=== PATIENT | male | born 1975 | race Caucasian/White ===

== ENCOUNTER 2022-11-24 02:51 | Inpatient (IN) | payer BC, SELFPAY ==
--- NOTE | 2022-11-24 | ECHO_ITS ---
Patient Info Name: Adalberto Howe Age: 47 years : 1975 Gender: Unknown Accession #: $[id number]$ Ht: 68 in Wt: 145 lbs BSA: 1.78 m2 HR: 65 bpm BP: 139 / 94 mmHg Heart Rhythm: Sinus Rhythm Exam Date: 11/24/2022 11:33 AM Exam Location: [facility] Helper: EMELIW Exam Type: CA echo doppler color flow Study Info Indications - st elevation mi R07.89 - Other chest pain Complete two-dimensional, color flow and Doppler transthoracic echocardiogram is performed. Summary 1. Complete two-dimensional, color flow and Doppler transthoracic echocardiogram is performed. 2. Left ventricular chamber dimension is normal. 3. Left ventricular systolic function is mildly reduced, estimated at 40-45%. 4. There is hypokinesis of the mid inferoseptum and mid anterolateral ruggiero. The apex is akinetic. Regional wall motion abnormality consistent with LAD infarction. 5. The left ventricular diastolic function is grade I diastolic dysfunction. 6. Right ventricular systolic function is normal. 7. There is mild mitral valve regurgitation. 8. There is mild tricuspid valve regurgitation. Left Ventricle There is hypokinesis of the mid inferoseptum and mid anterolateral ruggiero. The apex is akinetic. Regional wall motion abnormality consistent with LAD infarction. Left ventricular chamber dimension is normal. Left ventricular systolic function is mildly reduced, estimated at 40-45%. There is no increased left ventricular wall thickness. The left ventricular diastolic function is grade I diastolic dysfunction. Global longitudinal strain is abnormal at -11 %. Right Ventricle Right ventricular chamber dimension is normal. Right ventricular systolic function is normal. Left Atria Left atrial chamber dimension is normal. Right Atria Right atrial chamber dimension is normal. Atrial Septum Intact interatrial septum visualized by color flow imaging. Aortic Valve The aortic valve is trileaflet. There is no aortic valve stenosis. There is no aortic valve regurgitation. Pulmonic Valve The pulmonic valve is normal. Mitral Valve The mitral valve has thickened leaflets. There is mild mitral valve regurgitation. Tricuspid Valve There is mild tricuspid valve regurgitation. Pericardium/Pleural There is no pericardial effusion. Inferior Vena Cava Normal inferior vena cava with >50% collapse upon inspiration consistent with elevated right atrial pressure, 8 mmHg. Aorta The aortic root size at the sinus of Valsalva is normal. Left Ventricular Outflow Tract Name Value Normal LVOT 2D LVOT Diameter 2.0 cm LVOT Doppler LVOT Peak Gradient 3 mmHg LVOT Mean Gradient 2 mmHg LVOT VTI 16 cm LVOT VTI/AV VTI Ratio 0.7 LVOT Stroke Volume 53 ml LVOT CO 13.3 l/min LVOT CI 7.5 l/min/m2 Pulmonic Valve Name Value Normal RVOT Doppler
--- NOTE | ~2022-11-24 | US_ITS ---
US abdomen limited INDICATION: Elevated liver function tests PROCEDURE: Realtime right upper abdominal ultrasound. COMPARISON: No prior studies for comparison. FINDINGS: The pancreas is normal without focal mass or pancreatic ductal dilation. Liver echotexture is normal without focal mass or intrahepatic biliary dilatation. There is normal directional flow i n the portal vein. The gallbladder is normal without stones, gallbladder wall thickening or pericholecystic fluid. Comm on bile duct measures 4.5 mm. No sonographic De Anda's sign. IMPRESSION: 1: Normal limited abdominal ultrasound. Reviewed, dictated and finalized at location L.
--- NOTE | 2022-11-24 03:04 | ECG_ITS ---
Measurements Intervals [place] Rate: 64 P: 50 [place]: 171 QRS: -24 QRSD: 98 T: 42 QT: 389 QTc: 404 Interpretive Statements SINUS RHYTHM WITH OCCASIONAL VENTRICULAR PREMATURE COMPLEXES ANTEROSEPTAL MYOCARDIAL INFARCTION , POSSIBLY ACUTE [40+ ms Q WAVE IN V1-V4] ACUTE ME NO PREVIOUS ECG AVAILABLE FOR COMPARISON Electronically Signed On 11-25-2022 13:39:41 CDT by Keysha Harrington M.D.
[2022-11-24 05:00] VITALS: BMI 23.3
--- NOTE | 2022-11-24 05:03 | ECG_ITS ---
Measurements Intervals [place] Rate: 68 P: 65 [place]: 173 QRS: 5 QRSD: 102 T: 51 QT: 353 QTc: 377 Interpretive Statements SINUS RHYTHM LEFT ATRIAL ENLARGEMENT [-0.15mV P WAVE IN V1/V2] ANTEROLATERAL MYOCARDIAL INFARCTION RECENT BY SERIAL ECG REVIEW COMPARED TO ECG 11/24/2022 03:04:11 ACUTE CURRENT OF INJURY IS IMPROVED PATIENT HAS EVOLVED COMPLETED ANTERIOR Q-WAVE RI Electronically Signed On 11-29-2022 15:24:22 CDT by Justice Vega M.D.
[2022-11-24 20:00] VITALS: BP 131/94; PULSE 53; RESP 12; TEMP 37.1; O2SAT 100
[2022-11-24 22:00] VITALS: BP 122/85; PULSE 65; PULSE 67; RESP 14; O2SAT 98
[2022-11-24] MEDS: TICAGRELOR 90 MG TABLET PO (22:00)
--- NOTE | 2022-11-24 22:39 | HP_ITS ---
DATE OF SERVICE: HISTORY OF PRESENT ILLNESS: This is a white male, unknown to me prior to this consultation, who is admitted to the cardiac process laboratory specialist emergently this evening in the setting of acute anterior wall PA for emergency angiography and revascularization. The patient reports no previous history of significant medical problems other than depression. He states that he began to experience significant retrosternal chest pain at about 10 p.m. last evening. At about 3:15 a.m., I was notified in the emergency room that he presented there with these symptoms and obvious acute anterior wall . Emergency angiography has been recommended. The patient is being seen in the process laboratory specialist as he is being prepared for emergency angiography. He denies any history of hypertension, dyslipidemia, smoking, or diabetes. PAST MEDICAL HISTORY: Other than dementia is unremarkable. PAST SURGICAL HISTORY: Unremarkable. MEDICATIONS: An unknown antidepressant. ALLERGIES: NONE KNOWN. SOCIAL HISTORY: The patient is a nonsmoker. FAMILY HISTORY: He does not report a family history of premature coronary artery disease. 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 REVIEW OF SYSTEMS: Not obtained during this emergency. PHYSICAL EXAMINATION: GENERAL: He is a healthy, well-developed, well-nourished appearing gentleman, his stated age, in mild distress with chest pain. VITAL SIGNS: Blood pressure is 190/100, heart rate is 84 and regular, and respiratory rate 20 and nonlabored. HEAD AND NECK: Normocephalic and atraumatic. Pupils are equal and reactive. Sclerae are anicteric. NECK: Supple without JVD, thyromegaly, bruits, or lymphadenopathy. CHEST: Auscultation is clear in both lung castañeda. CARDIAC: PMI is not displaced. S1 and S2 are normal. There is no audible murmur. Fourth heart sound is audible. ABDOMEN: Benign, soft, and nontender. Bowel sounds are normal. EXTREMITIES: Free of any edema. Pulses are adequate distally. IMPRESSION: This is a patient without prior history of coronary artery disease, presenting about 4 hours into acute anterior wall myocardial infarction. He is being brought for emergency angiography and revascularization as indicated by those findings. D I MT: [facility]
--- NOTE | 2022-11-24 22:54 | OP_ITS ---
DATE OF PROCEDURE: CLINICAL SUMMARY: This is a white male without any prior history of coronary artery disease, who presented to the emergency department with chest pain that began about 3 hours prior to presentation. ECG upon arrival showed obvious acute anterior injury current, and STEMI team was activated. He is being brought to the medical laboratory technicians and prepped for emergency angiography. The patient is reporting moderate chest pain. Reports no other symptoms at this time. DESCRIPTION OF PROCEDURE: The patient was taken to the medical laboratory technicians in the emergent setting. The right femoral triangle was prepared and draped in the usual fashion. Anesthesia was provided with 1% lidocaine infiltrated locally. Using the modified Seldinger technique, a 6-Chadian vascular sheath was placed into the femoral artery. After this, I used a 6-Chadian CLS 3.5 guiding catheter to engage and inject the left coronary artery in multiple projections. Following this, the left coronary angiograms were reviewed, and emergency PCI of the LAD was recommended and carried out as detailed below. Prior to LAD PCI, the patient was systemically anticoagulated with a bolus and infusion of Angiomax. He had received aspirin and 180 mg of Brilinta in the emergency department. Following completion of PCI, the guiding catheter was withdrawn. A 6-Chadian JR4 catheter was used to engage and inject the right coronary artery. Following this, a 5-Chadian angled pigtail catheter was used to measure left-sided hemodynamics and to inject a left ventriculogram in the JONES projection. The case was then terminated. The sheath was sutured into position. The patient was taken to the ICU for post UT PCI recovery. There were no apparent procedural complications, and he left the medical laboratory technicians with no evidence of a groin hematoma. RESULTS: HEMODYNAMICS: Central aortic pressure is 195/105, left ventricle 195/10, end-diastolic pressure 24. There is no gradient upon pullback across the aortic valve. LEFT VENTRICULOGRAM: The left ventricle is normal in size. The mid to apical anterior wall and apical inferior wall are akinetic. The remainder of the LV contracts well. The global ejection fraction is approximately 40% by visual estimation. The left main coronary artery is nicely patent. LAD: The LAD is a large caliber vessel after the small diagonal branch the LAD is totally occluded. There is no antegrade flow. The appearance is typical of an abrupt thrombotic occlusion. CIRCUMFLEX: The circumflex is a medium caliber artery giving rise to a very small proximal marginal and then a more substantial second marginal. The circumflex system has mild luminal irregularities, but no significant limiting disease is identified. RIGHT CORONARY ARTERY: The right coronary artery is large in caliber and dominant to the posterior circulation. The RCA has mild diffuse luminal irregularities, but no significant flow-limiting atherosclerosis is seen. INTERVENTION: The LAD lesion was crossed and wired fairly easily with a 0.014 BMW guidewire. This was advanced down to the apex. The lesion was pre-dilated using a 3 x 20 mm Jonathan balloon inflated at 7 atmospheres for 30 seconds. Following this, the target lesion was stented using a 4 x 22 mm Orsiro drug-eluting stent with a very good anatomical result. This was deployed at 10 atmospheres for 60 seconds. At the end of the case, the LAD was widely patent with no residual stenosis, disruption, dissection, or distal embolization. ROMAN-3 flow was restored down to the apex. FINAL IMPRESSION: 1. Coronary artery disease presenting with acute anterior wall myocardial infarction with 100% occlusion of the proximal aspect of large LAD. 2. Successful emergency revascularization with good angiographic results using the 4 x 22 mm drug-eluting stent described above. 3. Mild non-f
[2022-11-25] VITALS (12 sets, daily range): BP systolic 130–153; BP diastolic 82–100; PULSE 52–72; RESP 14–26; TEMP 36.6–37.2; O2SAT 96–100
[2022-11-25 04:49] LABS: Basophils Absolute Auto 0.1 K/mm3 (0.0-0.1); Basophils Percent Auto 0.4 % (0.2-1.2); Eosinophils Absolute Auto 0.2 K/mm3 (0-0.3); Eosinophils Percent Auto 1.7 % (0-4.4); Hematocrit 41.9 % (42.0-52.0); Hemoglobin 13.9 g/dL (14.0-18.0); Immature Granulocyte Absolute 0.06 K/mm3 (0.00-0.031); Immature Granulocyte Percent A 0.4 % (0-0.5); Lymphocytes Absolute Auto 4.17 K/mm3 (0.9-3.2); Lymphocytes Percent Auto 29.8 % (18.3-44.2); Mean Corpuscular HGB Conc 33.2 g/dl (32-36); Mean Corpuscular Hemoglobin 32.2 pg (26-34); Monocytes Absolute Auto 1.2 K/mm3 (0.1-0.6); Monocytes Percent Auto 8.6 % (2.6-8.5); Neutrophils Absolute Auto 8.3 K/mm3 (1.3-6.7); Neutrophils Percent Auto 59.1 % (45.5-73.1); Platelet Count Result 227 k/mm3 (150-375); Red Blood Count 4.32 M/mm3 (4.6-6.20); Red Cell Distribution Width 12.7 % (11.5-14.5)
[2022-11-25 05:01] LABS: Alanine Aminotransferase 86 U/L (6-50); Albumin Level 3.8 g/dL (3.5-5.1); Alkaline Phosphatase 132 U/L (38-126); Anion Gap -2 mmol/L (8-16); Aspartate Amino Transferase 445 U/L (17-59); Bilirubin,Total 0.6 mg/dL (0.2-1.3); Blood Urea Nitrogen 10 mg/dL (9-20); Calcium 8.1 mg/dL (8.4-10.2); Carbon Dioxide 33 mmol/L (22-30); Chloride 106 mmol/L (98-107); Estimated CRCL calculation 109 ml/min; Estimated Glomerular Filt Rate > 60; Glucose 98 mg/dL (65-110); Magnesium 2.4 mg/dL (1.6-2.3); Phosphorus 2.8 mg/dL (2.5-4.5); Potassium 4.1 mmol/L (3.4-5.0); Sodium 137 mmol/L (137-145)
[2022-11-25] MEDS: TICAGRELOR 90 MG TABLET PO ×2 (08:14→20:24)
[2022-11-25] MEDS: LOSARTAN POTASSIUM 50 MG TABLET PO (08:14)
[2022-11-25] MEDS: METOPROLOL SUCCINATE EXT REL 100 MG TABCR PO (08:14)
[2022-11-25] MEDS: ROSUVASTATIN 10 MG TABLET 20 MG PO (08:15)
[2022-11-25] MEDS: ASPIRIN 81 MG CHEWABLE TABLET PO (08:15)
[2022-11-25 08:43] LABS: Hepatitis B Surface Antigen Negative (Negative)
[2022-11-25 08:48] LABS: HAV RESULT Negative (Negative); Hepatitis B Core IgM Result Negative (Negative)
[2022-11-25 09:00] LABS: Hepatitis C Virus Antibody Negative (Negative)
--- NOTE | 2022-11-25 09:00 | WPDINTPN ---
Progress Note: A&P Assessment and Plan (1) ST elevation (STEMI) myocardial infarction involving left anterior descending coronary artery: Code(s): I21.02 - ST elevation (STEMI) myocardial infarction involving left anterior descending coronary artery Status: Acute Assessment and Plan: Patient presented with chest pain on 11/24/2022, found to have anterior wall MN, was taken emergently to the labor commissioner where he was found to have 100% occlusion of the proximal aspect of large LAD, status post ADRIEN x1 with good angiographic results. EF of 40% with akinesis of mid to apical anterior wall -continue aspirin, metoprolol, rosuvastatin, Brilinta and losartan -cardiology following closely (2) Hypertension: Code(s): I10 - Essential (primary) hypertension Status: Acute Assessment and Plan: Continue metoprolol and losartan -blood pressures have been stable (3) Hyperlipidemia: Code(s): E78.5 - Hyperlipidemia, unspecified Status: Acute Assessment and Plan: Continue rosuvastatin (4) Tobacco use: Code(s): Z72.0 - Tobacco use Status: Acute Assessment and Plan: Have counseled patient on cessation of tobacco use -he smokes 1-2 cigarillo on a daily basis (5) Elevated liver enzymes: Code(s): R74.8 - Abnormal levels of other serum enzymes Status: Acute Assessment and Plan: Elevated LFTs could be related to MN -will obtain right upper quadrant ultrasound -check hepatitis panel Plan DVT prophylaxis: Patient ambulatory Stress ulcer prophylaxis: Not indicated Nutrition: Heart healthy diet Code Status: Full Code Critical Care Time Spent: 31 minute Due to a high probability of clinically significant, life threatening deterioration, the patient required my highest level of preparedness to intervene emergently and I personally spent this critical care time directly and personally managing the patient. This critical care time included obtaining a history; examining the patient; pulse oximetry; ordering and review of studies; arranging urgent treatment with development of a management plan; evaluation of patient's response to treatment; frequent reassessment; and discussions with other providers. It was exclusive of separately billable procedures and treating other patients and teaching time. Please see Assessment and Plan section and the rest of the note for further information on patient assessment and treatment This dictation may have been done utilizing a voice recognition system. Attempts have been made to correct errors. However, there may be uncorrected grammatical, spelling, and recognitions errors present. Subjective Date/time seen: 11/25/22 09:00 Interval history: Reason for consult: Anterior wall ST-elevation MN status post PTCA/PCI with ADRIEN x1 proximal aspect of large LAD which was totally occluded. Global ejection fraction was approximately 40% 11/25/2022: Patient seen and examined the ICU, awake, alert, denies any chest pain, shortness a breath, nausea, vomiting. Appetite has been good. Patient is afebrile, hemodynamically stable with adequate urine output. No issues overnight. Elevated liver enzymes this morning with a normal bilirubin Review of Systems Review of Systems: All systems reviewed & are unremarkable except as noted in HPI and below Exam Narrative: General: Pleasant gentleman in no acute distress HEENT:? Pupils equal and reactive, sclera is clear Neck:? Supple Respiratory:? Clear to auscultation bilaterally, adequate air entry, no wheezing Cardiac:? S1-S2 is normal, sinus bradycardia Abdomen:? Soft, nontender, nondistended, normoactive bowel sounds Extremities:? Right groin site without evidence of ecchymosis or hematoma, bilateral palpable pedal pulses, no lower extremity edema Neuro:? Patient is awake, alert, oriented, nonfocal Skin:? Dry and intact, no skin lesions noted Psych:? Normal mentation and affect Objec
--- NOTE | 2022-11-25 12:27 | PM.PNCARD ---
Progress Note: A&P Assessment and Plan (1) ST elevation (STEMI) myocardial infarction involving left anterior descending coronary artery: Code(s): I21.02 - ST elevation (STEMI) myocardial infarction involving left anterior descending coronary artery Status: Acute Assessment and Plan: Anterior STEMI with 100% LAD occlusion treated with placement of 4 x 22 mm Orsiro drug-eluting stent. Continue DAPT with ASA and Brilinta Continue statin Continue aggressive risk factor modification for CAD Echo shows LV systolic dysfunction with EF 40-45%. No evidence of heart failure on exam. NSVT on telemetry. Asymptomatic, self limiting. Continue metoprolol. Continue telemetry. OK to downgrade to IMU today Referral for cardiac rehab Anticipate discharge tomorrow as long as his clinical status remains stable. (2) Hypertension: Code(s): I10 - Essential (primary) hypertension Status: Acute Assessment and Plan: BP remains above goal. Continue losartan, metoprolol Add amlodipine 2.5mg daily (3) Hyperlipidemia: Code(s): E78.5 - Hyperlipidemia, unspecified Status: Acute Assessment and Plan: Continue rosuvastatin (4) Tobacco use: Code(s): Z72.0 - Tobacco use Status: Acute Assessment and Plan: Counseling performed (5) Elevated liver enzymes: Code(s): R74.8 - Abnormal levels of other serum enzymes Status: Acute Assessment and Plan: Liver u/s today. Subjective Date/time seen: 11/25/22 12:27 Cardiology follow up for STEMI Interval history: Feeling well this morning. Denies any chest pain, shortness of breath, palpitations. Had some NSVT overnight, longest run 23 beats. Hemodynamically stable. Review of Systems Review of Systems: All systems reviewed & are unremarkable except as noted in HPI and below Exam Const: General: comfortable, no acute distress, alert and awake Orientation/consciousness: patient oriented x3 HENMT: Head: normal to inspection Eyes: General: appearance normal, both eyes and all related structures Pupils: Equal, round and reactive pupils present Neck: Neck: normal visual inspection, supple and no JVD Carotids: normal carotid upstroke Resp: Effort & Inspection: normal respiratory effort Auscultation: clear to auscultation bilaterally Cardio: Rate: regular rate Rhythm: regular rhythm Heart sounds: S1 normal heart sound present, S2 normal heart sound present and no murmurs GI: Auscultation: normal bowel sounds Skin: General skin exam: normal color Other: R groin arterial access site free from bleeding, hematoma, swelling, pain Neuro: General: patient oriented x3 Cranial nerves: Yes Equal, round and reactive pupils present Extrem: General: normal to inspection Other: no edema Psych: Appearance: grossly normal Mental Status: mental status grossly normal Objective Data Vital Signs Vital Signs: Vital Signs - 24 hr 11/24/22 20:00 11/24/22 20:00 11/24/22 20:00 Temperature 37.1 C Pulse Rate 53 L 53 L Respiratory Rate 12 Blood Pressure 131/94 H Pulse Oximetry 100 Oxygen Delivery Room Air 11/24/22 22:00 11/24/22 22:00 11/25/22 00:00 Temperature Pulse Rate 67 65 53 L Respiratory Rate 14 Blood Pressure 122/85 Pulse Oximetry 98 Oxygen Delivery 11/25/22 00:00 11/25/22 00:00 11/25/22 02:00 Temperature 36.6 C Pulse Rate 53 L 52 L Respiratory Rate 16 Blood Pressure 138/90 Pulse Oximetry 100 Oxygen Delivery Room Air 11/25/22 02:00 11/25/22 04:00 11/25/22 04:00 Temperature Pulse Rate 55 L 53 L Respiratory Rate 26 H Blood Pressure 130/92 H Pulse Oximetry 97 Oxygen Delivery Room Air 11/25/22 04:00 11/25/22 06:00 11/25/22 06:00 Temperature Pulse Rate 53 L 65 65 Respiratory Rate 17 15 Blood Pressure 137/90 153/100 H Pulse Oximetry 100 96 Oxygen Delivery 11/25/22 08:00 11/25/22 08:00 11/25
[2022-11-25 13:10] LABS: Troponin I > 80.000 ng/mL (0.000-0.034)
[2022-11-25 13:11] LABS: Lactic Acid 1.6 mmol/L (0.7-2.0)
[2022-11-25 13:12] LABS: Anion Gap 8 mmol/L (8-16); Aspartate Amino Transferase 59 U/L (17-59); Bilirubin,Total 0.5 mg/dL (0.2-1.3); Blood Urea Nitrogen 12 mg/dL (9-20); Carbon Dioxide 29 mmol/L (22-30); Chloride 101 mmol/L (98-107); Estimated CRCL calculation 96 ml/min; Estimated Glomerular Filt Rate > 60; Glucose 137 mg/dL (65-110); Potassium 3.5 mmol/L (3.4-5.0); Sodium 138 mmol/L (137-145)
[2022-11-25 13:13] LABS: Alanine Aminotransferase 40 U/L (6-50)
[2022-11-25 13:14] LABS: Albumin Level 4.8 g/dL (3.5-5.1); Alkaline Phosphatase 154 U/L (38-126); Total Protein 8.3 g/dL (6.3-8.2)
--- NOTE | 2022-11-25 13:17 | PCCARD ---
Paper documentation exists on this patient due to [employer] [facility] downtime on 11/24/22 from 0030 to [][id number].
[2022-11-26] VITALS: PULSE 55
[2022-11-26 02:00] VITALS: PULSE 49
[2022-11-26 04:00] VITALS: BP 150/97; PULSE 50; PULSE 63; RESP 17; TEMP 36.6; O2SAT 98
[2022-11-26 06:00] VITALS: PULSE 53
[2022-11-26 08:00] VITALS: BP 142/82; PULSE 64; RESP 19; TEMP 36.6; O2SAT 100
[2022-11-26] MEDS: LOSARTAN POTASSIUM 50 MG TABLET PO (08:53)
[2022-11-26] MEDS: METOPROLOL SUCCINATE EXT REL 100 MG TABCR PO (08:53)
[2022-11-26] MEDS: ROSUVASTATIN 10 MG TABLET 20 MG PO (08:53)
[2022-11-26] MEDS: amLODIPine BESYLATE 2.5 MG TABLET PO (08:54)
[2022-11-26] MEDS: TICAGRELOR 90 MG TABLET PO (08:54)
[2022-11-26 08:57] LABS: Alanine Aminotransferase 62 U/L (6-50); Albumin Level 3.8 g/dL (3.5-5.1); Alkaline Phosphatase 125 U/L (38-126); Anion Gap 5 mmol/L (8-16); Aspartate Amino Transferase 205 U/L (17-59); Bilirubin,Total 0.4 mg/dL (0.2-1.3); Blood Urea Nitrogen 12 mg/dL (9-20); Calcium 8.3 mg/dL (8.4-10.2); Carbon Dioxide 27 mmol/L (22-30); Chloride 107 mmol/L (98-107); Estimated CRCL calculation 95 ml/min; Estimated Glomerular Filt Rate > 60; Glucose 149 mg/dL (65-110); Potassium 3.7 mmol/L (3.4-5.0); Sodium 139 mmol/L (137-145)
--- NOTE | 2022-11-26 09:24 | PM.DS ---
DS: Admitting Diagnosis Discharge Date 11/26/2022 Admitting Diagnosis Chest pain DS: Discharge Diagnosis Discharge Diagnosis (1) ST elevation (STEMI) myocardial infarction involving left anterior descending coronary artery: Code(s): I21.02 - ST elevation (STEMI) myocardial infarction involving left anterior descending coronary artery Status: Acute Assessment and Plan: Anterior STEMI with 100% LAD occlusion treated with placement of 4 x 22 mm Orsiro drug-eluting stent. Continue DAPT with ASA and Brilinta Continue statin Continue aggressive risk factor modification for CAD Echo shows LV systolic dysfunction with EF 40-45%. No evidence of heart failure on exam. NSVT on telemetry. Asymptomatic, self limiting. Continue metoprolol. No VT in the last 24 hours on telemetry. Referral for cardiac rehab OK for discharge home today (2) Hypertension: Code(s): I10 - Essential (primary) hypertension Status: Acute Assessment and Plan: BP remains above goal. Continue losartan, metoprolol, amlodipine. Further adjustments to be made as outpatient (3) Hyperlipidemia: Code(s): E78.5 - Hyperlipidemia, unspecified Status: Acute Assessment and Plan: Continue rosuvastatin (4) Tobacco use: Code(s): Z72.0 - Tobacco use Status: Acute Assessment and Plan: Counseling performed (5) Elevated liver enzymes: Code(s): R74.8 - Abnormal levels of other serum enzymes Status: Acute Assessment and Plan: Abdominal u/s normal. LFTs improved today. DS: Summary Hospital Course Hospital Course: Presented to the Emergency Department on 11/24/22 with a chief complaint of chest pain. His EKG was consistent with acute anterior wall SC. He was brought emergently to the cardiac catheterization lab for emergency angiography and revascularization. He was found to have 100% proximal LAD occlusion which was treated with placement of a 4 x 22mm Orsiro drug eluting stent. He recovered well without any significant complications. He did have a few episodes of nonsustained ventricular tachycardia which was asymptomatic and self limiting. He has not had any arrhythmias in the last 24 hours. He was also found to have elevated liver enzymes. Abdominal ultrasound was negative for any liver pathology and liver enzymes are improved this morning. His echocardiogram demonstrated mildly reduced LV systolic function with mid to apical anterior wall akinesis. He is stable this morning and appropriate for discharge home. Time Spent with Patient Time attestation: Total time spent providing and/or coordinating discharge services: Exam Const: General: comfortable, no acute distress, alert and awake Orientation/consciousness: patient oriented x3 HENMT: Head: normal to inspection Eyes: General: appearance normal, both eyes and all related structures Pupils: Equal, round and reactive pupils present Neck: Neck: normal visual inspection, supple and no JVD Carotids: normal carotid upstroke Resp: Effort & Inspection: normal respiratory effort Auscultation: clear to auscultation bilaterally Cardio: Rate: regular rate Rhythm: regular rhythm Heart sounds: S1 normal heart sound present, S2 normal heart sound present and no murmurs GI: Auscultation: normal bowel sounds Skin: General skin exam: normal color Other: R groin arterial access site free from bleeding, hematoma, swelling, pain Neuro: General: patient oriented x3 Cranial nerves: Yes Equal, round and reactive pupils present Extrem: General: normal to inspection Other: no edema Psych: Appearance: grossly normal Mental Status: mental status grossly normal DS: Data Data Completed and Pending Labs on day of discharge: Labs from last 24 hours 11/26/22 11/25/22 11/24/22 08:37 04:38 12:00 Sodium 139 Potassium 3.7 Chloride 107 Carbon Dioxide 27 Anion Gap 5 L BUN 12 10 Cr
[2022-11-26 10:00] VITALS: PULSE 66
[2022-11-26] MEDS: ASPIRIN 81 MG CHEWABLE TABLET PO (10:17)
== END 2022-11-26 11:09 | disposition home or self-care (01) | DRG 247 ==
LOC: ANHED 19:09 → ANHICU 20:00
PROVIDERS: Internal Medicine; Admitting Provider Specialist; Emergency Provider Emergency Medicine; PCP Family Medicine; Visit Provider Nurse Practitioner
PROC: 4A023N7 Measurement of Cardiac Sampling and Pressure, Left Heart, Percutaneous Approach (ICD-10-PCS; CPT 93452; principal; 2022-11-24 03:35)
PROC: 027034Z Dilation of Coronary Artery, One Artery with Drug-eluting Intraluminal Device, Percutaneous Approach (ICD-10-PCS; 2022-11-24 03:35)
DX: I21.02 ST elevation (STEMI) myocardial infarction involving left anterior descending coronary artery (principal); I47.29 Other ventricular tachycardia; E78.5 Hyperlipidemia, unspecified; F17.210 Nicotine dependence, cigarettes, uncomplicated; F32.A Depression, unspecified; I25.10 Atherosclerotic heart disease of native coronary artery without angina pectoris; I10 Essential (primary) hypertension; R74.8 Abnormal levels of other serum enzymes
CPT/HCPCS: 36415; 76705; 80053; 80074; 83605; 83735; 84100; 84484; 85025; 93005; 93306; 93458; 94762; 99285; A9270; C1725; C1769; C1874; C1887; C1894; C9606; J0583; J1644; J2405; J7040

== ENCOUNTER 2023-11-15 13:56 | Emergency (ER) | payer BC, SELFPAY ==
[2023-11-15] VITALS (14 sets, daily range): BP systolic 136–158; BP diastolic 81–97; PULSE 64–87; RESP 12–20; TEMP 36.6–36.9; O2SAT 97–100
--- NOTE | ~2023-11-15 | XR_ITS ---
EXAMINATION: XR chest 2V 11/15/2023 14:40 INDICATION: Chest pain and dizziness. PROCEDURE: 2 view chest COMPARISON: No prior studies for comparison. FINDINGS: The lungs are clear. The cardiomediastinal silhouette is within normal limits. There are no pleural effusions. There is no pneumothorax suspected. IMPRESSION: 1: NO ACUTE CARDIOPULMONARY DISEASE. Reviewed, dictated and finalized at location B.
--- NOTE | 2023-11-15 13:57 | ECG_ITS ---
Test Date: 2023-11-15 13:59:45 Measurements Intervals [place] Rate: 91 P: 74 [place]: 159 QRS: -44 QRSD: 101 T: 79 QT: 353 QTc: 436 Interpretive Statements SINUS RHYTHM WITH SINUS ARRHYTHMIA LEFT ATRIAL ENLARGEMENT [-0.15mV P-WAVE IN V1/V2] LEFT AXIS DEVIATION [QRS AXIS < -30] ANTEROSEPTAL MYOCARDIAL INFARCTION , OF INDETERMINATE AGE [40+ ms Q WAVE IN V1-V4] No previous ECG available for comparison Electronically Signed On 11-26-2023 15:40:21 CDT by Grant Brady M.D.
[2023-11-15 14:17] LABS: Basophils Absolute Auto 0.1 K/mm3 (0.0-0.1); Basophils Percent Auto 0.5 % (0.2-1.2); Eosinophils Absolute Auto 0.1 K/mm3 (0-0.3); Eosinophils Percent Auto 0.5 % (0-4.4); Hematocrit 44.2 % (42.0-52.0); Hemoglobin 15.4 g/dL (14.0-18.0); Immature Granulocyte Absolute 0.05 K/mm3 (0.00-0.031); Immature Granulocyte Percent A 0.4 % (0-0.5); Lymphocytes Absolute Auto 3.08 K/mm3 (0.9-3.2); Lymphocytes Percent Auto 22.6 % (18.3-44.2); Mean Corpuscular HGB Conc 34.8 g/dl (32-36); Mean Corpuscular Hemoglobin 32.7 pg (26-34); Mean Corpuscular Volume 93.8 fl (80-100); Mean Platelet Volume 9.7 fl (7.4-10.4); Monocytes Percent Auto 7.2 % (2.6-8.5); Neutrophils Absolute Auto 9.4 K/mm3 (1.3-6.7); Neutrophils Percent Auto 68.8 % (45.5-73.1); Platelet Count Result 361 k/mm3 (150-375); Red Blood Count 4.71 M/mm3 (4.6-6.20); Red Cell Distribution Width 12.3 % (11.5-14.5); White Blood Count 13.6 K/mm3 (4.5-10.0)
[2023-11-15 14:26] LABS: INR 0.9
[2023-11-15 14:27] LABS: Partial Thromboplastin Time 31.7 Seconds (22.3-36.8)
[2023-11-15 14:29] LABS: Alanine Aminotransferase 19 U/L (6-50); Albumin Level 4.3 g/dL (3.5-5.1); Alkaline Phosphatase 89 U/L (38-126); Anion Gap 9 mmol/L (4-12); Aspartate Amino Transferase 30 U/L (17-59); Bilirubin,Total 0.5 mg/dL (0.2-1.3); Blood Urea Nitrogen 7 mg/dL (9-20); Calcium 9.3 mg/dL (8.4-10.2); Carbon Dioxide 22 mmol/L (22-30); Chloride 108 mmol/L (98-107); Estimated CRCL calculation 95 ml/min; Estimated Glomerular Filt Rate > 60; Glucose 103 mg/dL (65-110); Lipase 152 U/L (23-300); Potassium 3.4 mmol/L (3.4-5.0); Sodium 139 mmol/L (137-145)
--- NOTE | 2023-11-15 14:31 | ED.CHESTPAIN ---
HPI - Chest Pain General Chief Complaint: Chest Pain <Tad Higuera APRN - Last Filed: 11/15/23 18:28> Stated Complaint: chest pain <Tad Higuera APRN - Last Filed: 11/15/23 18:28> Time Seen by Provider: 11/15/23 14:30 <Tad Higuera APRN - Last Filed: 11/15/23 18:28> Source: patient <Tad Higuera APRN - Last Filed: 11/15/23 18:28> Mode of arrival: ambulatory <Tad Higuera APRN - Last Filed: 11/15/23 18:28> Limitations: no limitations <Tad Higuera APRN - Last Filed: 11/15/23 18:28> History of Present Illness HPI narrative: Adalberto is a 48-year-old male patient presenting to the today with complaints possible heart problems. He reports he did have an episode of nausea and vomiting this morning and he appears to be very anxious. States he was seen 1 year ago in the ER for similar symptoms and he was having a heart attack. He did have a catheterization completed at that time any does have 1 cardiac stent. He denies any chest pain or associated shortness of breath at this time however he felt overwhelmed and had some labor breathing prior to coming in to the ER today. He reports the symptoms started about 1.5 hours ago. He denies any chest pain currently, any radiation of pain, diaphoresis, or shortness of breath. [place] as though he had the nausea/vomiting as his mouth felt very dry. He is taking Brilinta, baby aspirin, amlodipine, metoprolol, rosuvastatin, and reports he just started on Wellbutrin last week. <Tad Higuera APRN - Last Filed: 11/15/23 18:28> Related Data Home Medications: Home Medications Medication Instructions Recorded Confirmed escitalopram oxalate 10 mg tablet 10 mg PO DAILY 11/24/22 11/24/22 <Tad Higuera APRN - Last Filed: 11/15/23 18:28> Allergies/Adverse Reactions: Allergies Allergy/AdvReac Type Severity Reaction Status Date / Time No Known Drug Allergies Allergy Verified 06/04/11 12:33 <Tad Higurea APRN - Last Filed: 11/15/23 18:28> Review of Systems Review of Systems: Pertinent positives per HPI. Patient denies any fever, chills, rash, headache, visual changes, dizziness, cough, runny nose, sore throat, shortness of breath, chest pain, palpitations, diarrhea, constipation, abdominal pain, or any urinary issues. <Tad Higuera APRN - Last Filed: 11/15/23 18:28> PMFSH Family History Family History: Family History Father Brain aneurysm Mother Kidney cancer, primary, with metastasis from kidney to other site <Tad Higuera APRN - Last Filed: 11/15/23 18:28> Social History Social History: Social History Years smoked: 30 Smoking status: Former smoker Smoking end date: 11/24/22 Additional smoking assessment comments: 2 cigars off and on for 30 years Alcohol intake: never Substance use: never Lack of Transportation: No Lack of Food: Never True Current Housing: Decline to Answer Concerned About Future Housing: Decline to Answer Difficulty Paying Gas/Electric Bills: Decline to Answer Difficulty Paying for Meds: Decline to Answer Currently Unemployed: Decline to Answer Education: Decline to Answer Difficulty w/ Childcare or Family Care: Decline to Answer Spiritual care concerns: Yes <Tad Higuera APRN - Last Filed: 11/15/23 18:28> Comments At the time of my signature, I reviewed and agree with the nursing past medical, surgical, social, and family history. There is no relevant family history pertinent to the patient complaint. <Tad Higuera APRN - Last Filed: 11/15/23 18:28> Exam Narrative: General: Well-developed, well nourished, in no apparent distress Head: Normocephalic, atraumatic. Cardio: Regular rate and rhythm, s1 and s2 normal, no murmur appreciated. Resp: Clear to aus
[2023-11-15 14:41] LABS: Troponin I < 0.012 ng/mL (0.000-0.034)
--- NOTE | 2023-11-15 16:53 | ECG_ITS ---
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 Measurements Intervals [place] Rate: 62 P: 54 OK: 173 QRS: -32 QRSD: 96 T: 90 QT: 403 QTc: 410 Interpretive Statements SINUS RHYTHM MARKED LEFT AXIS DEVIATION [QRS AXIS < -30] ANTEROSEPTAL MYOCARDIAL INFARCTION , OLD T WAVE ABNORMALITY IN THE LATERA LEADS, CONSIDER ISCHEMIA No previous ECG available for comparison Electronically Signed On 11-16-2023 13:53:20 CDT by Keysha Harrington M.D.
[2023-11-15 17:48] LABS: Troponin I < 0.012 ng/mL (0.000-0.034)
== END 2023-11-15 18:31 | disposition home or self-care (01) ==
PROVIDERS: Family Medicine; Emergency Provider Nurse Practitioner Family; PCP Family Medicine
DX: R07.89 Other chest pain (principal); F41.9 Anxiety disorder, unspecified; I25.2 Old myocardial infarction; Z95.5 Presence of coronary angioplasty implant and graft; Z87.891 Personal history of nicotine dependence; R94.31 Abnormal electrocardiogram [ECG] [EKG]
CPT/HCPCS: 36415; 71046; 80053; 83690; 84484; 85025; 85610; 85730; 93005; 99284